=== PATIENT | female | born 1985 | race Caucasian/White ===

== ENCOUNTER 2020-07-31 14:10 | Emergency (ER) | payer OTHER, SELFPAY ==
[2020-07-31] VITALS (10 sets, daily range): BP systolic 112–140; BP diastolic 63–82; PULSE 84–109; RESP 16–22; TEMP 36.7; O2SAT 99–100; BMI 25.7
[2020-07-31 15:15] LABS: Alanine Aminotransferase 38 IU/L (<35); Albumin 4.4 g/dL (3.5-5.0); Albumin Globulin Ratio 1.3 (1.0-2.8); Alkaline Phosphatase 104 U/L (38-126); Aspartate Aminotransferase 56 IU/L (14-36); BUN Creatinine Ratio 13.2 (6-22); Bilirubin Total 0.4 mg/dL (0.2-1.3); Blood Urea Nitrogen 9 mg/dL (7-17); Calcium 9.2 mg/dL (8.4-10.2); Carbon Dioxide 22 mmol/L (22-32); Chloride 108 mmol/L (98-107); Estimated Glomerular Filt Rate > 60.0 mL/min (>60); Globulin 3.3 g/dL (1.7-4.1); Glucose 108 mg/dL (70-100); HEMOLYSIS 18 (0-50); Potassium 3.6 mmol/L (3.4-5.1); Sodium 138 mmol/L (137-145); Total Protein 7.7 g/dL (6.3-8.2)
[2020-07-31 15:21] LABS: Add Manual Diff / Slide Review NO; Basophils Absolute Auto 100 /uL (0-100); Basophils Percent Auto 0.5 % (0-2); Eosinophils Absolute Auto 100 /uL (0-450); Eosinophils Percent Auto 0.7 % (2-4); Hematocrit 44.3 % (36-46); Hemoglobin 14.7 g/dL (12.0-16.0); Lymphocytes Absolute Auto 2700 /uL (1100-4500); Lymphocytes Percent Auto 24.8 % (25-40); Mean Corpuscular HGB Conc 33.3 % (30-36); Mean Corpuscular Volume 90.2 fL (80-100); Monocytes Absolute Auto 700 /uL (0-900); Monocytes Percent Auto 6.8 % (3-14); Neutrophils Absolute Auto 7200 /uL (1500-7000); Neutrophils Percent Auto 67.2 % (50-75); Platelet Count 317 X10^3/uL (150-400); Red Blood Cell Count 4.91 X10^6/uL (4.0-5.2); Red Cell Distribution Width 13.2 % (11.6-14.8); White Blood Cell Count 10.8 X10^3/uL (4.5-11.0)
[2020-07-31 15:50] LABS: HCG Quantitative /Beta subunit 1794.5 mIU/mL
--- NOTE | 2020-07-31 15:59 | DI.US.S_ITS ---
PROCEDURE: US OB <= 14 WEEKS FETUS INDICATIONS: LEFT LOWER QUADRANT PAIN. 7 WEEKS GESTATION. HX OF ECTOPIC OUTSIDE/PRIOR DATING DATA: Last menstrual period (LMP): 06/11/2020. LMP-based estimated date of delivery (LIVAN): 03/18/2021. First dating scan (date and location): 07/31/2020. Estimated date of delivery (LIVAN) from first dating scan: Approximately 04/02/2021 based on mean gestational sac diameter. TECHNIQUE: Real-time scanning was performed of the fetus and maternal pelvic organs, with image documentation. Endovaginal scanning was also performed to better visualize the fetus and maternal ovaries. COMPARISON: None. FINDINGS: Embryo: Intrauterine gestational sac with mean gestational sac diameter measuring 0.3 cm, corresponding to an estimated gestational age of 5 weeks 0 days. pole not seen at this time. Measurement variability in dating: +/- 4 weeks by LMP, +/- 7 days by mean sac diameter (use before 6 weeks gestation if crown-rump length not able to be measured), +/- 5 days by crown-rump length (up to 8 weeks 6 days gestation), +/- 7 days by crown-rump length (up to 13 weeks 6 days gestation). Maternal organs: Solid and cystic left adnexal mass measuring 2.3 x 2.2 x 1.7 cm. There is mild increased vascularity at the peripheral aspect (partial ring of fire). Right ovary is within normal limits. IMPRESSION: 1. Suspect intrauterine gestational sac. Estimated gestational age 5 weeks 0 days. No crown-rump length at this time. 2. Left adnexal solid and cystic mass measuring at 2.3 cm. Diagnostic considerations include corpus luteum versus ectopic . Recommend correlation and trending beta HCG as well as short-term interval follow-up OB ultrasound. Dictated by: Timothy Avila M.D. on 07/31/2020 at 17:00 Approved by: Timothy Avila M.D. on 07/31/2020 at 17:06
--- NOTE | 2020-07-31 16:34 | ED.ABDPAIN ---
HPI - Abdominal Pain <ZARINA Frausto - Last Filed: 07/31/20 19:50> General Chief Complaint: Abdominal Pain Stated Complaint: 7 Wks , Thinks Ectopic, Severe Abd Pain Time Seen by Provider: 07/31/20 15:49 Source: patient Mode of arrival: Ambulatory Limitations: no limitations History of Present Illness HPI narrative: The patient is a 35-year-old female current smoker with history of ectopic presents with a chief complaint of left lower quadrant pain while 7 weeks . She is concerned about and other ectopic. The patient had an ectopic at 15 weeks with her previous . She states that her pain is been aching in the left lower quadrant for a few days. Her primary care provider is Dr. Douglas on [place]. She denies any dysuria urgency or frequency. She denies any current nausea or vomiting. She denies any vaginal bleeding or vaginal discharge. She denies any concerned about sexually transmitted infections. She reports that her last menstrual cycle, was June 11. Related Data Previous Rx's Medication Instructions Recorded dextroamphetamine 0 PO BID #168 04/30/17 Allergies Allergy/AdvReac Type Severity Reaction Status Date / Time No Known Allergies Allergy Unknown Verified 07/31/20 14:27 [NO KNOWN ALLERGIES] Review of Systems <ZARINA Frausto - Last Filed: 07/31/20 19:50> Review of Systems Narrative: GENERAL: Denies chills, fatigue, malaise, fever, sweats. HEENT: Denies sinus pain, ear pain, sore throat, difficulty swallowing, dizziness. RESPIRATORY: Denies dyspnea, cough, wheezing, hemoptysis, sputum. CARDIOVASCULAR: Denies chest pain, palpitations, orthopnea, edema, GASTROINTESTINAL: See HPI : See HPI MUSCULOSKELETAL: denies weakness, joint pain, or bony pain SKIN: Denies rash, skin lesions, or other NEUROLOGIC: Denies weakness, headache, numbness, change in speech, confusion, seizures, incoordination. PSYCHIATRIC: No concerning psychosocial issues. 12 point review of systems is negative except for those stated above Patient History <ZARINA Frausto - Last Filed: 07/31/20 19:50> Social History Smoking Status: Current every day smoker Smoking Status: Current every day smoker tobacco type: cigarettes alcohol intake frequency: holidays/special occasions only Substance Use Type: does not use Exam <ZARINA Frausto - Last Filed: 07/31/20 19:50> Narrative Exam Narrative: GENERAL: This is a well-nourished, well-developed patient, in no acute HEAD: Atraumatic. Normocephalic. No temporal or scalp tenderness. EYES: Pupils equal round and reactive. Extraocular motions intact. No scleral icterus. No injection or drainage. ENT: Nose without bleeding, purulent drainage or septal hematoma. Wearing a mask Airway patent. NECK: Trachea midline. No JVD or lymphadenopathy. Supple, nontender, no meningeal signs. CARDIOVASCULAR: Regular rate and rhythm RESPIRATORY: Clear to auscultation. Breath sounds equal bilaterally. No wheezes, rales, or rhonchi. No cough. No increased respiratory effort. No accessory muscle use GASTROINTESTINAL: Abdomen soft, diffuse tenderness to left lower quadrant, nondistended. No hepato-splenomegaly, or palpable masses. No guarding. Active bowel sounds all 4 quadrants EXTREMITIES: No clubbing, cyanosis, or edema. No joint tenderness, effusion, or edema noted. BACK: Nontender without deformity or crepitance. No flank tenderness. NEURO: AOx3. SKIN: No rash or erythema on visible skin Initial Vital Signs Initial Vital Signs: Vital Signs Temperature 98.1 F 07/31/20 14:21 Pulse Rate 109 H 07/31/20 14:21 Respiratory Rate 18 07/31/20 14:21 Blood Pressure 138/63 07/31/20 14:21 Pulse Oximetry 100 07/31/20 14:21 <Praveena Collado MD - Last Filed: 08/01/20 07:37> Initial Vital Signs Initial Vital Signs: Vital Signs Temperature 98.1 F 07/31/20 14:21 Pulse Rate 109 H 07/31/20 14:21 Respiratory Rate 18 07/31/20 14:21 Blood Pressure 138/63 07/31/20 14:21 Pulse Oximetry 100 07/31/20 14:21 Scores <ZARINA Frausto - Last Filed: 07/31/20 19:50> GCS Peg coma scale eye opening: Spontaneous Peg coma scale verbal response: Orientated [place] coma scale motor response: Obey commands Peg coma scale total score: 15 Course <ZARINA Frausto - Last Filed: 07/31/20 19:50> Orders Ordered: ED Orders 07/31/20 14:37 Complete Blood Count AUTO DIFF Stat Comprehensive Metabolic Panel Stat HCG Quantitative /Beta subunit Stat 07/31/20 15:59 US OB <= 14 weeks fetus Stat ABO RH Type Stat Vital Signs Vital signs: Vital Signs - 8 hr 07/31/20 14:21 07/31/20 15:38 07/31/20 15:39 Temperature 98.1 F Pulse Rate 109 H 92 H Respiratory Rate 18 18 Blood Pressure 138/63 124/82 Pulse Oximetry 100 100 07/31/20 16:00 07/31/20 16:30 07/31/20 17:00 Temperature Pulse Rate 90 96 H 97 H Respiratory Rate 16 22 20 Blood Pressure 112/73 140/74 118/70 Pulse Oximetry 99 100 99 07/31/20 17:30 07/31/20 18:00 07/31/20 18:30 Temperature Pulse Rate 88 91 H 84 Respiratory Rate 19 22 19 Blood Pressure 121/77 122/81 121/73 Pulse Oximetry 99 99 99 07/31/20 19:00 Temperature Pulse Rate 90 Respiratory Rate 20 Blood Pressure 131/70 Pulse Oximetry 99 <Praveena Collado MD - Last Filed: 08/01/20 07:37> Orders Ordered: ED Orders 07/31/20 14:37 Complete Blood Count AUTO DIFF Stat Comprehensive Metabolic Panel Stat HCG Quantitative /Beta subunit Stat 07/31/20 15:59 US OB <= 14 weeks fetus Stat ABO RH Type Stat Vital Signs Vital signs: Vital Signs - 8 hr 07/31/20 14:21 07/31/20 15:38 07/31/20 15:39 Temperature 98.1 F Pulse Rate 109 H 92 H Respiratory Rate 18 18 Blood Pressure 138/63 124/82 Pulse Oximetry 100 100 07/31/20 16:00 07/31/20 16:30 07/31/20 17:00 Temperature Pulse Rate 90 96 H 97 H Respiratory Rate 16 22 20 Blood Pressure 112/73 140/74 118/70 Pulse Oximetry 99 100 99 07/31/20 17:30 07/31/20 18:00 07/31/20 18:30 Temperature Pulse Rate 88 91 H 84 Respiratory Rate 19 22 19 Blood Pressure 121/77 122/81 121/73 Pulse Oximetry 99 99 99 07/31/20 19:00 Temperature Pulse Rate 90 Respiratory Rate 20 Blood Pressure 131/70 Pulse Oximetry 99 MDM - Abdominal Pain <Yuliana Musa, [employer]- - Last Filed: 07/31/20 19:50> Lab Data Attestation: I reviewed the patient's lab results. Result diagrams: 07/31/20 14:37 07/31/20 14:37 Labs: Lab Results 07/31/20 07/31/20 07/31/20 Range/Units 14:37 14:37 14:37 WBC 10.8 (4.5-11.0) X10^3/uL RBC 4.91 (4.0-5.2) X10^6/uL Hgb 14.7 (12.0-16.0) g/dL Hct 44.3 (36-46) % MCV 90.2 (80-100) fL MCH 30.0 (26-34) PG MCHC 33.3 (30-36) % RDW 13.2 (11.6-14.8) % Plt Count 317 (150-400) X10^3/uL Neut % (Auto) 67.2 (50-75) % Lymph % (Auto) 24.8 L (25-40) % [place] % (Auto) 6.8 (3-14) % Eos % (Auto) 0.7 L (2-4) % Baso % (Auto) 0.5 (0-2) % Neut # (Auto) 7200 H (0324-4940) /uL Lymph # (Auto) 2700 (1651-0539) /uL [place] # (Auto) 700 (0-900) /uL Eos # (Auto) 100 (0-450) /uL Baso # (Auto) 100 (0-100) /uL Sodium 138 (137-145) mmol/L Potassium 3.6 (3.4-5.1) mmol/L Chloride 108 H (98-107) mmol/L Carbon Dioxide 22 (22-32) mmol/L BUN 9 (7-17) mg/dL Creatinine 0.68 (0.52-1.04) mg/dL Estimated GFR > 60.0 (>60) mL/min BUN/Creatinine Ratio 13.2 (6-22) Glucose 108 H (70-100) mg/dL Calcium 9.2 (8.4-10.2) mg/dL Total Bilirubin 0.4 (0.2-1.3) mg/dL AST 56 H (14-36) IU/L ALT 38 H (<35) IU/L Alkaline Phosphatase 104 (38-126) U/L Total Protein 7.7 (6.3-8.2) g/dL Albumin 4.4 (3.5-5.0) g/dL Globulin 3.3 (1.7-4.1) g/dL Albumin/Globulin Ratio 1.3 (1.0-2.8) HCG, Quant 1794.5 mIU/mL Blood Type 07/31/20 Range/Units 15:59 WBC (4.5-11.0) X10^3/uL RBC (4.0-5.2) X10^6/uL Hgb (12.0-16.0) g/dL Hct (36-46) % MCV (80-100) fL MCH (26-34) PG MCHC (30-36) % RDW (11.6-14.8) % Plt Count (150-400) X10^3/uL Neut % (Auto) (50-75) % Lymph % (Auto) (25-40) % [place] % (Auto) (3-14) % Eos % (Auto) (2-4) % Baso % (Auto) (0-2) % Neut # (Auto) (3916-1028) /uL Lymph # (Auto) (3872-6639) /uL [place] # (Auto) (0-900) /uL Eos # (Auto) (0-450) /uL Baso # (Auto) (0-100) /uL Sodium (137-145) mmol/L Potassium (3.4-5.1) mmol/L Chloride (98-107) mmol/L Carbon Dioxide (22-32) mmol/L BUN (7-17) mg/dL Creatinine (0.52-1.04) mg/dL Estimated GFR (>60) mL/min BUN/Creatinine Ratio (6-22) Glucose (70-100) mg/dL Calcium (8.4-10.2) mg/dL Total Bilirubin (0.2-1.3) mg/dL AST (14-36) IU/L ALT (<35) IU/L Alkaline Phosphatase (38-126) U/L Total Protein (6.3-8.2) g/dL Albumin (3.5-5.0) g/dL Globulin (1.7-4.1) g/dL Albumin/Globulin Ratio (1.0-2.8) HCG, Quant mIU/mL Blood Type O Negative Point of care testing: Point of Care Testing Test Results Positive Urine Dip Bedside Urine Glucose Negative Bedside Urine Bilirubin - Negative Bedside Urine Ketone - Negative Urine Specific [place] 1.030 Bedside Urine Occult Blood - Negative Bedside Urine pH 6.0 Bedside Urine Protein - Negative Bedside Urine Urobilinogen - Negative Bedside Urine Nitrite - Negative Bedside Urine Leukocytes - Negative Esterase Imaging Data US - OB: Radiologist's Impression: [address] [place] [id number] ReportSigned Patient: Nandini Doe EMR#: [id number]: [id number]:[id number]/Sex: 35 / FDate of Service: 07/31/20Loc: EDAccession Number: [id number] Procedure: US OB <= 14 weeks fetus Ordering Provider: Yuliana Musa PROCEDURE: US OB <= 14 WEEKS FETUS INDICATIONS: LEFT LOWER QUADRANT PAIN. 7 WEEKS GESTATION. HX OF ECTOPIC OUTSIDE/PRIOR DATING DATA: Last menstrual period (LMP): 06/11/2020. LMP-based estimated date of delivery (LIVAN): 03/18/2021. First dating scan (date and location): 07/31/2020. Estimated date of delivery (LIVAN) from first dating scan: Approximately 04/02/2021 based on mean gestational sac diameter. TECHNIQUE: Real-time scanning was performed of the fetus and maternal pelvic organs, with image documentation. Endovaginal scanning was also performed to better visualize the fetus and maternal ovaries. COMPARISON: None. FINDINGS: Embryo: Intrauterine gestational sac with mean gestational sac diameter measuring 0.3 cm, corresponding to an estimated gestational age of 5 weeks 0 days. pole not seen at this time. Measurement variability in dating: +/- 4 weeks by LMP, +/- 7 days by mean sac diameter (use before 6 weeks gestation if crown-rump length not able to be measured), +/- 5 days by crown-rump length (up to 8 weeks 6 days gestation), +/- 7 days by crown-rump length (up to 13 weeks 6 days gestation). Maternal organs: Solid and cystic left adnexal mass measuring 2.3 x 2.2 x 1.7 cm. There is mild increased vascularity at the peripheral aspect (partial ring of fire). Right ovary is within normal limits. IMPRESSION: 1. Suspect intrauterine gestational sac. Estimated gestational age 5 weeks 0 days. No crown-rump length at this time. 2. Left adnexal solid and cystic mass measuring at 2.3 cm. Diagnostic considerations include corpus luteum versus ectopic . Recommend correlation and trending beta HCG as well as short-term interval follow-up OB ultrasound. Dictated by: Timothy Avila M.D. on 07/31/2020 at 17:00 Approved by: Timothy Avila M.D. on 07/31/2020 at 17:06 [facility] Narrative Medical decision making narrative: The patient is a 35-year-old female who presents with a chief complaint of left lower quadrant pain and concern for an ectopic as she has 1 previously. Her beta-hCGs in the 1700s. Urine test is positive. Thus ultrasound was obtained, which shows a suspected intrauterine gestational sac as well is a left adnexal solid cystic mass. No sign of urinary tract infection. Otherwise labs within normal limits. I spoke with emergency OB physician on-call, Dr. Blakely as the patient has no OBGYN who encouraged follow-up and trending of beta hCG. I discussed this with the patient, she is welcome to follow up with OBGYN if needed and able. However she states she does no longer wants to be [facility] I encouraged her to follow whichever goals that she chooses, but I encouraged her to get follow-up regardless to ensure that she does not have an early ectopic. Discussed this possibility with her, though it is noted that she has a suspected intrauterine gestational sac. Discussed coming back to ER for acute concerns such as severe abdominal pain inability keep down fluids etcetera. Patient has no questions or concerns upon discharge and states understanding return precautions as well as follow-up care. <Praveena Collado MD - Last Filed: 08/01/20 07:37> Lab Data Labs: Lab Results 07/31/20 07/31/20 07/31/20 Range/Units 14:37 14:37 14:37 WBC 10.8 (4.5-11.0) X10^3/uL RBC 4.91 (4.0-5.2) X10^6/uL Hgb 14.7 (12.0-16.0) g/dL Hct 44.3 (36-46) % MCV 90.2 (80-100) fL MCH 30.0 (26-34) PG MCHC 33.3 (30-36) % RDW 13.2 (11.6-14.8) % Plt Count 317 (150-400) X10^3/uL Neut % (Auto) 67.2 (50-75) % Lymph % (Auto) 24.8 L (25-40) % [place] % (Auto) 6.8 (3-14) % Eos % (Auto) 0.7 L (2-4) % Baso % (Auto) 0.5 (0-2) % Neut # (Auto) 7200 H (4771-1502) /uL Lymph # (Auto) 2700 (5962-7316) /uL [place] # (Auto) 700 (0-900) /uL Eos # (Auto) 100 (0-450) /uL Baso # (Auto) 100 (0-100) /uL Sodium 138 (137-145) mmol/L Potassium 3.6 (3.4-5.1) mmol/L Chloride 108 H (98-107) mmol/L Carbon Dioxide 22 (22-32) mmol/L BUN 9 (7-17) mg/dL Creatinine 0.68 (0.52-1.04) mg/dL Estimated GFR > 60.0 (>60) mL/min BUN/Creatinine Ratio 13.2 (6-22) Glucose 108 H (70-100) mg/dL Calcium 9.2 (8.4-10.2) mg/dL Total Bilirubin 0.4 (0.2-1.3) mg/dL AST 56 H (14-36) IU/L ALT 38 H (<35) IU/L Alkaline Phosphatase 104 (38-126) U/L Total Protein 7.7 (6.3-8.2) g/dL Albumin 4.4 (3.5-5.0) g/dL Globulin 3.3 (1.7-4.1) g/dL Albumin/Globulin Ratio 1.3 (1.0-2.8) HCG, Quant 1794.5 mIU/mL Blood Type 07/31/20 Range/Units 15:59 WBC (4.5-11.0) X10^3/uL RBC (4.0-5.2) X10^6/uL Hgb (12.0-16.0) g/dL Hct (36-46) % MCV (80-100) fL MCH (26-34) PG MCHC (30-36) % RDW (11.6-14.8) % Plt Count (150-400) X10^3/uL Neut % (Auto) (50-75) % Lymph % (Auto) (25-40) % [place] % (Auto) (3-14) % Eos % (Auto) (2-4) % Baso % (Auto) (0-2) % Neut # (Auto) (4225-3202) /uL Lymph # (Auto) (6236-1775) /uL [place] # (Auto) (0-900) /uL Eos # (Auto) (0-450) /uL Baso # (Auto) (0-100) /uL Sodium (137-145) mmol/L Potassium (3.4-5.1) mmol/L Chloride (98-107) mmol/L Carbon Dioxide (22-32) mmol/L BUN (7-17) mg/dL Creatinine (0.52-1.04) mg/dL Estimated GFR (>60) mL/min BUN/Creatinine Ratio (6-22) Glucose (70-100) mg/dL Calcium (8.4-10.2) mg/dL Total Bilirubin (0.2-1.3) mg/dL AST (14-36) IU/L ALT (<35) IU/L Alkaline Phosphatase (38-126) U/L Total Protein (6.3-8.2) g/dL Albumin (3.5-5.0) g/dL Globulin (1.7-4.1) g/dL Albumin/Globulin Ratio (1.0-2.8) HCG, Quant mIU/mL Blood Type O Negative Point of care testing: Point of Care Testing Test Results Positive Urine Dip Bedside Urine Glucose Negative Bedside Urine Bilirubin - Negative Bedside Urine Ketone - Negative Urine Specific [place] 1.030 Bedside Urine Occult Blood - Negative Bedside Urine pH 6.0 Bedside Urine Protein - Negative Bedside Urine Urobilinogen - Negative Bedside Urine Nitrite - Negative Bedside Urine Leukocytes - Negative Esterase Discharge Plan Departure Patient Disposition: Home Clinical Impression: Abdominal pain affecting Instructions: DI for Abdominal Pain -- Early Activity Restrictions/Additional Instructions: Thank you for trusting us with your care. As discussed, your ultrasound intrauterine gestational sac. There is also a left ovarian solid and cystic mass. This could be an ovarian cyst, or an early ectopic . As discussed, please follow-up with primary care provider as well as an OBGYN. I spoke with Dr. Blakely regarding your care. You are welcome to follow up with OB GYNs through [facility]. You could reach them at [phone]. You can also use your own OBGYN services, though it is important that you receive further lab work and imaging. Please come back to emergency department for any acute concerns. Prescriptions: No Action dextroamphetamine 10 MG tablet 0 PO BID Qty: 168 RF: 0 Referrals: Antwan Douglas MD [Primary Care Provider] - <Praveena Collado MD - Last Filed: 08/01/20 07:37> Cosign ED Attending Cosignature Attestation: I was immediately available in the department for consultation throughout this patient's visit. I agree with documentation as above. Praveena Collado MD
== END 2020-07-31 19:28 | disposition home or self-care (01) ==
PROVIDERS: Emergency Medicine; Emergency Provider Nurse Practitioner Family; PCP Family Medicine
DX: O26.891 Other specified pregnancy related conditions, first trimester (principal); R10.32 Left lower quadrant pain; Z3A.01 Less than 8 weeks gestation of pregnancy
CPT/HCPCS: 36415; 76801; 76817; 80053; 81003; 81025; 84702; 85025; 86900; 86901; 99283; 99284

== ENCOUNTER → 2020-08-06 09:11 | Outpatient (CLI) | payer OTHER, SELFPAY ==
--- NOTE | 2020-08-06 09:12 | DI.US.S_ITS ---
PROCEDURE: US OB <= 14 WEEKS FETUS INDICATIONS: FOLLOW-UP OUTSIDE/PRIOR DATING DATA: Last menstrual period (LMP): 06/11/20. LMP-based estimated date of delivery (LIVAN): 03/18/21 . First dating scan (date and location): 07/31/20 . Estimated date of delivery (LIVAN) from first dating scan: 04/02/21 . TECHNIQUE: Real-time scanning was performed of the fetus and maternal pelvic organs, with image documentation. Endovaginal scanning was also performed to better visualize the fetus and maternal ovaries. COMPARISON: [facility], , OB <= 14 WEEKS FETUS, 07/31/2020, 16:31. FINDINGS: Embryo: An intrauterine gestation is not yet visualized. Measurement variability in dating: +/- 4 weeks by LMP, +/- 7 days by mean sac diameter (use before 6 weeks gestation if crown-rump length not able to be measured), +/- 5 days by crown-rump length (up to 8 weeks 6 days gestation), +/- 7 days by crown-rump length (up to 13 weeks 6 days gestation). Maternal organs: Ovaries appear normal on the right but there is a masslike structure excentric at the left ovary measuring up to 2.3 x 1.5 x 1.9 cm with elevated peripheral vascularity. Limited images through the kidneys demonstrate no hydronephrosis. IMPRESSION: Intrauterine gestation not found. Possible ectopic left ovary. Correlation with quantitative beta HCG is recommended to determine if the exact beta HCG value currently present should be correlated with a visualized intrauterine gestation. Findings called to the ground support equipment fitter of the ordering healthcare provider at time of this dictation. Dictated by: Mitchel Ochoa M.D. on 08/06/2020 at 11:37 Approved by: Mitchel Ochoa M.D. on 08/06/2020 at 11:47
[2020-08-06 11:01] LABS: HCG Quantitative /Beta subunit 3032.4 mIU/mL
== END ==
PROVIDERS: PCP Family Medicine; Referring Provider Family Medicine; Visit Provider Family Medicine
DX: Z36.2 Encounter for other antenatal screening follow-up
CPT/HCPCS: 36415; 76801; 76817; 84702

== ENCOUNTER → 2020-08-10 11:39 | Outpatient (CLI) | payer OTHER, SELFPAY ==
[2020-08-10 12:53] LABS: HCG Quantitative /Beta subunit 2513.4 mIU/mL
== END ==
PROVIDERS: PCP Family Medicine; Referring Provider Obstetrics & Gynecology; Visit Provider Obstetrics & Gynecology
DX: O00.90 Unspecified ectopic pregnancy without intrauterine pregnancy (principal)
CPT/HCPCS: 36415; 84702

== ENCOUNTER → 2020-08-15 11:34 | Outpatient (CLI) | payer OTHER, SELFPAY ==
[2020-08-15 12:28] LABS: HCG Quantitative /Beta subunit 1127.8 mIU/mL
== END ==
PROVIDERS: PCP Family Medicine; Referring Provider Obstetrics & Gynecology; Visit Provider Obstetrics & Gynecology
DX: O00.90 Unspecified ectopic pregnancy without intrauterine pregnancy (principal)
CPT/HCPCS: 84702

== ENCOUNTER → 2021-01-25 12:14 | Outpatient (CLI) | payer OTHER, SELFPAY ==
--- NOTE | 2021-01-25 12:15 | DI.RAD.S_ITS ---
PROCEDURE: HL HYSTEROSAPINGOGRAPHY INDICATIONS: Infertility COMPARISON: None. FINDINGS: Patient had a documented negative test prior to the study. Following speculum insertion, a balloon-tip catheter was inserted into the cervical canal, and secured by inflating the balloon. Contrast was then injected into the endometrial canal. Uterus: The uterine cavity appears normal in size and morphology, without synechiae or masses. Fallopian tubes: Both fallopian tubes fill with contrast, and appear normal in caliber and morphology. There is ready dispersion of contrast into the peritoneal cavity. IMPRESSION: Normal-appearing fallopian tubes bilaterally, free spillage into the peritoneal space along the ovarian margins bilaterally. Overall, normal hysterosalpingogram. Dictated by: Mitchel Ochoa M.D. on 01/25/2021 at 13:52 Approved by: Mitchel Ochoa M.D. on 01/25/2021 at 13:53
--- NOTE | 2021-01-25 13:34 | PM.PROC.1 ---
Procedures Date/Time Date of procedure: 01/25/21 Time of procedure: 13:35 General Procedure description: Hysterosalpingogram After informed consent was obtained, the patient was placed on the table on an overturned bedpan to boost her bottom. An open-sided speculum was placed into the vagina. The cervix was cleaned x3 with Betadine. A single-tooth tenaculum was placed on the anterior lip of the cervix. The hysterosalpingogram catheter passed easily into the endometrial cavity and 3 cc of air were put into the balloon to keep it in place. The open sided speculum was removed from vagina. Approximately 10 cc of Optiray 300 were injected into the uterus under direct fluoroscopic examination. The contours of the uterus were normal. There was immediate spill from both tubes. The fluid was removed from the uterus. The balloon was deflated and the hysterosalpingogram catheter was removed from the uterus. The single-tooth tenaculum was removed from the anterior lip of the cervix. The bedpan was removed from underneath the patient. The patient tolerated the procedure well. Complications: none
== END ==
PROVIDERS: PCP Family Medicine; Referring Provider Obstetrics & Gynecology; Visit Provider Obstetrics & Gynecology
DX: O00.101 Right tubal pregnancy without intrauterine pregnancy (principal)
CPT/HCPCS: 58340; 74740

== ENCOUNTER → 2022-03-16 09:54 | Outpatient (CLI) | payer OTHER, SELFPAY ==
[2022-03-16 12:48] LABS: TSH w/ Reflex to FT4 1.77 uIU/mL (0.47-4.68)
== END ==
PROVIDERS: PCP Family Medicine; Referring Provider Physician Assistant Medical; Visit Provider Physician Assistant Medical
DX: E04.9 Nontoxic goiter, unspecified (principal); R63.5 Abnormal weight gain
CPT/HCPCS: 36415; 84443